=== PATIENT | female | born 1965 ===

== ENCOUNTER 2020-06-24 15:01 | Outpatient (CLI) | payer OTHER ==
[2020-06-24 20:31] LABS: THYROID STIMULATING HORMONE 2.77 uIU/mL (0.34-5.60)
[2020-06-24 20:33] LABS: FREE T3 3.14 pg/mL (2.5-3.9); FREE T4 (FREE THYROXINE) 0.89 ng/dL (0.58-1.64)
== END 2020-06-24 15:02 | disposition home or self-care (01) ==
LOC: LAB.S 15:01
PROVIDERS: ATTEND Internal Medicine Endocrinology, Diabetes & Metabolism
DX: E03.9 Hypothyroidism, unspecified (principal)
CPT/HCPCS: 36415; 84439; 84443; 84481

== ENCOUNTER 2022-11-16 10:10 | Outpatient (CLI) | payer BC ==
[2022-11-16 15:02] LABS: THYROID STIMULATING HORMONE 1.49 uIU/mL (0.34-5.60)
[2022-11-16 15:04] LABS: FREE T3 4.11 pg/mL (2.5-3.9); FREE T4 (FREE THYROXINE) 1.3 ng/dL (0.58-1.64)
[2022-11-16 15:08] LABS: CREATININE 0.7 mg/dL (0.4-1.0)
== END 2022-11-16 10:11 | disposition home or self-care (01) ==
LOC: LAB.S 10:10
PROVIDERS: ATTEND Internal Medicine Endocrinology, Diabetes & Metabolism
DX: E03.9 Hypothyroidism, unspecified (principal); R19.4 Change in bowel habit; K52.9 Noninfective gastroenteritis and colitis, unspecified
CPT/HCPCS: 36415; 81599; 82565; 82784; 83516; 84439; 84443; 84481; 86140; 86255; 86258; 86364